=== PATIENT | female | born 1995 | race Caucasian/White ===

== ENCOUNTER → 2018-01-14 11:53 | Outpatient (CLI) | payer OTHER, SELFPAY ==
[2018-01-14 15:51] LABS: Hematocrit 38.7 % (37-47); Hemoglobin 12.2 g/dl (12.0-15.0); Mean Corp Hgb Conc 31.5 g/gl (32-36); Mean Corpuscular Hgb 25.7 pg (27.0-32.0); Mean Corpuscular Volume 81.5 fL (81-99); Mean Platelet Vol. 9.6 fl (6.2-12.0); Platelet Count 271 K/mm3 (150-450); RBC Distribution Width CV 12.4 % (11.6-14.6); RBC Distribution Width SD 36.9 fl (35.1-43.9); Red Blood Count 4.75 M/mm3 (4.2-5.4); Scan Indicated on CBC? Y/N NO; White Blood Count 5.9 K/mm3 (4.4-11.0)
== END ==
PROVIDERS: Visit Provider Obstetrics & Gynecology
DX: R53.83 Other fatigue (principal); N92.0 Excessive and frequent menstruation with regular cycle; R53.1 Weakness
CPT/HCPCS: 36415; 84443; 85027

== ENCOUNTER 2021-07-17 14:36 | Emergency (ER) | payer OTHER, SELFPAY ==
[2021-07-17] VITALS (13 sets, daily range): BP systolic 102–119; BP diastolic 57–76; PULSE 80–95; RESP 16–18; TEMP 36.3–37.1; O2SAT 99–100; BMI 26.4
--- NOTE | 2021-07-17 16:51 | EDS_ITS ---
HPI HPI - Female History of Present Illness Chief Complaint: Vag Bleeding Informant: patient Narrative Narrative: 26-year-old female presenting with vaginal bleeding. Patient states this started in mid May. She states she has been having heavy periods with clots. She has felt fatigued. She denies dizziness or syncope. Denies pelvic cramping. She was seen by [facility] [facility] today and had outpatient labs ordered. This showed anemia with a hemoglobin of 5.4. She was advised to come to the ED for blood transfusion. Prior similar symptoms: Yes Recent Illness/Hospitalization: No PFSH PFSH Medical History Non-smoker Home Medications NK 07/17/21 [History Last Taken Unknown] Allergy/AdvReac Type Severity Reaction Status Date / Time No Known Allergies Allergy Verified 07/17/21 14:40 Social History Smoking Status: Never smoker ROS ROS ED Constitutional Constitutional ED: Denies fever(s) Eyes Eyes: Denies change in vision ENT ENT ED: Denies rhinorrhea or sore throat Cardiovascular Cardiovascular: Denies chest pain or palpitations Respiratory/Chest Respiratory/Chest: Denies cough or dyspnea Gastrointestinal Gastrointestinal: Denies abdominal pain, diarrhea, nausea or vomiting Genitourinary Genitourinary ED: Reports other Details: vaginal bleeding ; Denies dysuria Musculoskeletal Musculoskeletal: Denies myalgias Integumentary Denies rash Neurologic Neurologic: Denies headache(s) Psychiatric Psychiatric: Denies suicidal thoughts EXAM Physical Exam Const Vital Signs: 07/17/21 14:38 07/17/21 19:11 07/17/21 19:26 Temperature 97.3 F L 98.1 F Temperature Source Temporal Oral Pulse Rate 89 91 93 Respiratory Rate 17 17 18 Blood Pressure 118/74 110/72 119/74 Blood Pressure Mean 88 84 89 Blood Pressure Source Blood Pressure Position Blood Pressure Location Pulse Ox 100 100 100 Oxygen Delivery Method Room Air Room Air Room Air 07/17/21 19:39 07/17/21 19:54 07/17/21 20:14 Temperature 98.1 F 98.2 F Temperature Source Oral Oral Pulse Rate 88 92 88 Respiratory Rate 18 18 16 Blood Pressure 118/65 115/73 108/65 Blood Pressure Mean 82 87 79 Blood Pressure Source Monitor Monitor Blood Pressure Position Sitting Semi-Fowlers Blood Pressure Location Right Arm Right Arm Pulse Ox 100 99 100 Oxygen Delivery Method Room Air Room Air Room Air 07/17/21 21:38 07/17/21 21:41 07/17/21 21:45 Temperature 98.7 F 98.7 F 98.2 F Temperature Source Oral Oral Oral Pulse Rate 87 81 81 Respiratory Rate 18 16 18 Blood Pressure 104/73 108/66 111/66 Blood Pressure Mean 83 80 81 Blood Pressure Source Monitor Monitor Monitor Blood Pressure Position Supine Supine Supine Blood Pressure Location Right Arm Right Arm Right Arm Pulse Ox 100 100 100 Oxygen Delivery Method Room Air Room Air Room Air 07/17/21 21:50 07/17/21 21:56 07/17/21 22:30 Temperature 98.1 F 98.2 F Temperature Source Oral Oral Pulse Rate 80 83 95 Respiratory Rate 17 16 16 Blood Pressure 106/69 107/68 106/76 Blood Pressure Mean 81 81 86 Blood Pressure Source Monitor Monitor Blood Pressure Position Supine Supine Blood Pressure Location Right Arm Right Arm Pulse Ox 99 100 100 Oxygen Delivery Method Room Air Room Air Room Air Positive well nourished and well developed General Appearance ED: well developed HEENT Reports normocephalic and head/scalp atraumatic Eyes PERRL and EOMs intact bilaterally Neck supple General: Negative for tenderness Chest Wall inspection of chest normal Resp normal respiratory effort and clear to auscultation bilaterally Cardio regular rate and regular rhythm GI non-tender and non-distended Palpation: soft; Negative for guarding or rebound tenderness present no CVA tenderness Extremity normal to inspection Neuro oriented x3 Sensorium / Orientation: alert Psych mental status grossly normal MDM MDM MDM Narrative Medical decision making narrative: Patient has never had a pelvic exam. Attempted pelvic exam without success. She has significant pain with minimal insertion of the speculum. She had no significant active bleeding. Hemoglobin 6.0. test is negative. She is typed and crossed for 2 units packed red blood cells. She was consented for blood transfusion. She was given 2 units packed red blood cells. She is resting comfortably on reevaluation. Discussed with Dr. Schulz and patient will follow-up as outpatient. She will take the medication she was prescribed earlier today by [employer] [facility]. Advised return to ED for worsening complaints. Lab Data Attestation: I reviewed the patient's lab results. Labs: Laboratory Results - last 24 hr 07/17/21 07/17/21 07/17/21 17:06 17:06 17:06 WBC 7.5 RBC 3.03 L Hgb 6.0 L* Hct 20.4 L MCV 67.3 L MCH 19.8 L MCHC 29.4 L RDW Std Deviation 41.4 RDW Coeff of Danette 16.9 H Plt Count 442 MPV 8.9 Immature Gran % (Auto) 0.700 Neut % (Auto) 55.8 Lymph % (Auto) 35.4 Barber % (Auto) 6.5 Eos % (Auto) 1.2 Baso % (Auto) 0.4 Absolute Neuts (auto) 4.2 Absolute Lymphs (auto) 2.67 Nucleated RBC % 0.3 Diff Path Review May foll Platelet Estimate SLT INC RBC Morphology N CHROM Hypochromasia 1+ Anisocytosis 1+ Microcytosis 1+ Tear Drop Cells RARE Ovalocytes RARE Serum , Qual Cancelled Urine Color Urine Clarity Urine pH Ur Specific [place] Urine Protein Urine Glucose (UA) Urine Ketones Urine Occult Blood Urine Nitrite Urine Bilirubin Urine Urobilinogen Ur Leukocyte Esterase Urine RBC Urine WBC Ur Squamous Epith Cells Urine Bacteria Urine Mucus Urine Test Blood Type O POSITIVE Antibody Screen NEGATIVE Crossmatch See Detail 07/17/21 07/17/21 17:06 19:52 WBC RBC Hgb Hct MCV MCH MCHC RDW Std Deviation RDW Coeff of Danette Plt Count MPV Immature Gran % (Auto) Neut % (Auto) Lymph % (Auto) Barber % (Auto) Eos % (Auto) Baso % (Auto) Absolute Neuts (auto) Absolute Lymphs (auto) Nucleated RBC % Diff Path Review Platelet Estimate RBC Morphology Hypochromasia Anisocytosis Microcytosis Tear Drop Cells Ovalocytes Serum , Qual Urine Color Matilde Urine Clarity Cloudy Urine pH 6.0 Ur Specific [place] 1.020 Urine Protein 100 H Urine Glucose (UA) Normal Urine Ketones 5 H Urine Occult Blood 250 H Urine Nitrite Negative Urine Bilirubin Negative Urine Urobilinogen Normal Ur Leukocyte Esterase 25 H Urine RBC > 100 SEEN Urine WBC 0 SEEN Ur Squamous Epith Cells 0-5 SEEN Urine Bacteria 0 SEEN Urine Mucus 0 SEEN Urine Test Negative Blood Type Antibody Screen Crossmatch Discharge Plan Triage Chief Complaint: Vag Bleeding ED Provider: Stephani Marmolejo Dx/Rx/DC Orders Clinical Impression: Anemia requiring transfusions, Vaginal bleeding Instructions: Anemia, ED Dysfunctional Uterine Bleeding Prescriptions: No Action NK RF: 0 Primary Care Provider: Jackie Mann Referrals: Jackie Mann MD [Primary Care Provider] - Mercy Schulz MD [STAFF PHYSICIAN] - Disposition Disposition: Home, Self Care
[2021-07-17 17:29] LABS: Absolute Lymphocyte Count 2.67 X10^3/uL (0.83-4.51); Absolute Neutrophil Count 4.2 X10^3/uL (2.0-7.7); Basophil# 0.03 X10^3/uL; Basophil% 0.4 % (0-1); Eosinophil# 0.09 X10^3/uL; Eosinophils% 1.2 % (0-5); Hematocrit 20.4 % (37-47); Lymphocyte # 2.67 X10^3/ul (0.83-4.51); Lymphocyte % 35.4 % (19-41); Mean Corp Hgb Conc 29.4 g/dL (32-36); Mean Corpuscular Hgb 19.8 pg (27.0-32.0); Mean Corpuscular Volume 67.3 fL (81-99); Mean Platelet Vol. 8.9 fl (6.2-12.0); Monocyte# 0.49 X10^3/uL; Monocyte% 6.5 % (0-10); NRBC Flagged by Analyzer 0.3 % (0-5); Neutrophil # 4.21 X10^3/uL (2.7-7.7); Neutrophil % 55.8 % (47-70); Platelet Count 442 K/mm3 (150-450); RBC Distribution Width CV 16.9 % (11.6-14.6); RBC Distribution Width SD 41.4 fl (35.1-43.9); Red Blood Count 3.03 M/mm3 (4.2-5.4); White Blood Count 7.5 K/mm3 (4.4-11.0)
[2021-07-17 17:37] LABS: Differential Indicated SCAN CRITERIA MET; POSITIVE COUNT NO; POSITIVE DIFFERENTIAL NO; POSITIVE MORPHOLOGY NO
[2021-07-17 17:41] LABS: Internal QC Validated? YES +Cl - CLEAR BKGD; Pregnancy, Urine Negative Negative
--- NOTE | 2021-07-17 17:42 | ED.RN ---
assisted physician with pelvic exam. pt unable to tolerate
[2021-07-17 18:07] LABS: Platelet Estimate SLT INC (ADEQ)
[2021-07-17 18:08] LABS: Anisocytosis 1+; Hypochromasia 1+; Microcytosis 1+; Ovalocyte RARE; Red Cell Morphology N CHROM NORMAL (NORM C&C); Tear Drop Cell RARE
[2021-07-17 19:59] LABS: Bacteria 0 SEEN /hpf (None Seen); Mucous, Urine 0 SEEN /hpf (<or=2+); White Blood Cells 0 SEEN /hpf (0-5)
[2021-07-17 20:03] LABS: Color, Urine Amber (Yellow); Glucose, Dipstick Normal (Normal); Ketone-Dipstick 5 mg/dl (Negative); Leukocyte Esterase-Dipstick 25 /ul (Negative); Nitrite-Dipstick Negative (Negative); Occult Blood-Urine 250 /ul (Negative); Protein-Dipstick 100 mg/dl (Negative); Urine Bilirubin Dipstick Negative (Negative); Urine Clarity Cloudy (Clear); Urine Urobilinogen Normal (Normal)
[2021-07-17 20:25] LABS: Red Blood Cells-Urine > 100 SEEN /hpf (0-5); Squamous Epithelial Cells - UA 0-5 SEEN /hpf (5-10)
[2021-07-18 15:20] LABS: Pathologist Review Reviewed
== END 2021-07-17 23:47 | disposition home or self-care (01) ==
PROVIDERS: Emergency Provider Emergency Medicine; PCP Internal Medicine; Visit Provider Emergency Medicine
DX: D64.9 Anemia, unspecified (principal); N93.9 Abnormal uterine and vaginal bleeding, unspecified; R53.83 Other fatigue
CPT/HCPCS: 36430; 81001; 81025; 85025; 86850; 86900; 86901; 86920; 86922; 99283; J7040; P9016; A4216

== ENCOUNTER 2021-08-27 01:43 | Emergency (ER) | payer OTHER, SELFPAY ==
[2021-08-27 01:47] VITALS: BP 123/73; PULSE 77; RESP 15; TEMP 36.6; O2SAT 98; BMI 28.7
--- NOTE | 2021-08-27 02:20 | ED.RN ---
ASSISTED PT TO RESTROOM TO OBTAIN URINE SAMPLE. PT PASSED LARGE CLOT- APPROX 5IN X 2 INCHES
[2021-08-27 02:24] LABS: Absolute Lymphocyte Count 3.11 X10^3/uL (0.83-4.51); Absolute Neutrophil Count 6.8 X10^3/uL (2.0-7.7); Basophil# 0.05 X10^3/uL; Basophil% 0.5 % (0-1); Eosinophil# 0.22 X10^3/uL; Hematocrit 32.6 % (37-47); Hemoglobin 9.9 g/dL (12.0-15.0); Lymphocyte # 3.11 X10^3/ul (0.83-4.51); Lymphocyte % 28.4 % (19-41); Mean Corp Hgb Conc 30.4 g/dL (32-36); Mean Corpuscular Hgb 20.9 pg (27.0-32.0); Mean Corpuscular Volume 68.9 fL (81-99); Mean Platelet Vol. 8.9 fl (6.2-12.0); Monocyte# 0.68 X10^3/uL; Monocyte% 6.2 % (0-10); NRBC Flagged by Analyzer 0 % (0-5); Neutrophil # 6.81 X10^3/uL (2.7-7.7); POSITIVE MORPHOLOGY YES; Platelet Count 384 K/mm3 (150-450); RBC Distribution Width CV 22.5 % (11.6-14.6); RBC Distribution Width SD 53.5 fl (35.1-43.9); Red Blood Count 4.73 M/mm3 (4.2-5.4)
[2021-08-27 02:31] LABS: Differential Indicated SCAN CRITERIA MET
[2021-08-27 02:32] LABS: Mucous, Urine 0 SEEN /hpf (<or=2+)
[2021-08-27 02:34] VITALS: BP 110/70; BP 119/77; BP 123/80; PULSE 83; PULSE 88; PULSE 98
[2021-08-27 02:36] LABS: Anion Gap 5 (5-15); BUN 16 mg/dL (7-18); BUN/Creat Ratio 18.2 RATIO (10-20); Calcium,Total 9.3 mg/dL (8.5-10.1); Chloride 108 mmol/L (98-107); Creatinine, Serum 0.88 mg/dL (0.55-1.02); EST Glomerular Filtration Rate 83 mL/min (>60); Est Glom Filt Rate - Afr Amer 100 mL/min (>60); Glucose 150 mg/dL (74-106); Potassium 3.9 mmol/L (3.5-5.1); Sodium Level 140 mmol/L (136-145)
[2021-08-27 02:49] LABS: Color, Urine Red (Yellow); Glucose, Dipstick Normal (Normal); Ketone-Dipstick 5 mg/dl (Negative); Leukocyte Esterase-Dipstick 100 /ul (Negative); Nitrite-Dipstick Negative (Negative); Occult Blood-Urine 250 /ul (Negative); Protein-Dipstick 100 mg/dl (Negative); Urine Bilirubin Dipstick Negative (Negative); Urine Clarity Cloudy (Clear); Urine Urobilinogen Normal (Normal)
[2021-08-27 02:50] LABS: Anisocytosis 2+; Microcytosis 2+
[2021-08-27 02:51] LABS: Internal QC Validated? YES +Cl - CLEAR BKGD; Pregnancy, Urine Negative Negative; Squamous Epithelial Cells - UA 0-5 SEEN /hpf (5-10); White Blood Cells 10-25 SEEN /hpf (0-5)
[2021-08-27] MEDS: Ondansetron 4 MG/2 ML Vial IV (02:53)
[2021-08-27] MEDS: Morphine 4 MG/ML Syringe IV (02:53)
[2021-08-27 02:54] VITALS: BP 111/80; PULSE 86; RESP 18; O2SAT 100
[2021-08-27 02:56] LABS: Red Blood Cells-Urine > 100 SEEN /hpf (0-5)
[2021-08-27 02:57] LABS: Bacteria 2+ /hpf (None Seen); Transitional Epithelial - Ur 0-5 SEEN /hpf (0-5)
--- NOTE | 2021-08-27 03:01 | EX.ED.DYSGE1 ---
HPI History of Present Illness Chief Complaint: Abd Pain Narrative Narrative: Patient is a 26-year-old female with past medical history of heavy menstrual bleeding leading to need for blood transfusion. She was on hormone replacement therapy to stop her menstrual cycle for the past 30 to 45 days. She recently stopped that medication and now reports having vaginal bleeding with passage of clot. She reports abdominal pain associated with this and states that it feels similar nature to her previous cycles and pain that she would have with them. She states she has tried [id number] Tylenol with no symptom improvement and with her return of bleeding had concerned that she may need another transfusion and secondary to this presents to the hospital for evaluation [facility] Medical History Non-smoker Home Medications cephalexin 500 mg PO TID 7 Days #21 cap 08/27/21 [Rx Last Taken Unknown] hydrocodone-acetaminophen 1 tab PO Q6H PRN 3 Days #12 tab 08/27/21 [Rx Last Taken Unknown] norelgestromin-ethin.estradiol [Xulane] 1 patch TOPICAL QWEEK 08/27/21 [History Last Taken Unknown] Allergy/AdvReac Type Severity Reaction Status Date / Time No Known Allergies Allergy Verified 08/27/21 01:51 Social History Smoking Status: Never smoker [facility] ED Constitutional Constitutional ED: Denies chills or fever(s) ENT ENT ED: Denies sore throat Cardiovascular Cardiovascular: Denies chest pain, palpitations or racing heartbeat Respiratory/Chest Respiratory/Chest: Denies cough or dyspnea Gastrointestinal Gastrointestinal: Reports abdominal pain; Denies diarrhea, nausea or vomiting Genitourinary Genitourinary ED: Reports hematuria; Denies dysuria Musculoskeletal Musculoskeletal: Denies myalgias Integumentary Denies rash Neurologic Neurologic: Denies headache(s) Hematologic/Lymphatic Hematologic/Lymphatic: Denies easy bleeding or easy bruising EXAM Physical Exam Const Vital Signs: 08/27/21 01:47 08/27/21 02:34 08/27/21 02:54 Temperature 97.8 F Temperature Source Oral Pulse Rate 77 86 Pulse Rate [Lying] 83 Pulse Rate [Sitting (for 1 minute prior to obtaining)] 88 Pulse Rate [Standing (for 1 minute prior to obtaining)] 98 Respiratory Rate 15 18 Blood Pressure 123/73 H 111/80 Blood Pressure [Lying] 110/70 Blood Pressure [Sitting (for 1 minute prior to obtaining)] 123/80 H Blood Pressure [Standing (for 1 minute prior to obtaining)] 119/77 Blood Pressure Mean 89 90 Blood Pressure Mean [Lying] 83 Blood Pressure Mean [Sitting (for 1 minute prior to obtaining)] 94 Blood Pressure Mean [Standing (for 1 minute prior to obtaining)] 91 Pulse Ox 98 100 Oxygen Delivery Method Room Air Room Air Positive well nourished and well developed General Appearance ED: well developed HEENT Reports moist mucous membranes Eyes PERRL and EOMs intact bilaterally General Eye ED: Negative for pale conjunctiva Neck supple Resp normal respiratory effort and clear to auscultation bilaterally Cardio regular rate and regular rhythm GI normal to inspection, nondistended, normoactive bowel sounds, non-tender, non-distended and no masses GI Narrative: No voluntary guarding or rigidity. Auscultation: normoactive bowel sounds Palpation: soft Back/Spine no CVA tenderness Extremity normal to inspection Neuro oriented x3 and CN's II-XII intact bilaterally Sensorium / Orientation: alert Motor Exam: strength 5/5 throughout Psych mental status grossly normal Skin no rashes or lesions noted MDM MDM MDM Narrative Medical decision making narrative: Patient presented to the ER with stable vitals and a soft nonsurgical abdomen. Therefore I felt no need for imaging studies at this time. With her history of needing a blood transfusion and now having return of her menstrual cycle I did elect to check basic laboratory value. Patient's hemoglobin is low at 9.9 but this is improved from the last value of 6 and above the threshold for blood transfusion. Orthostatic vitals were also obtained and were negative. Patient's urine did show a large amount of blood consistent with being on her menstrual cycle but it showed also +2 bacteria. Therefore some of her abdominal pain and spasm could be related to bladder infection. Therefore the urine will be sent for culture and patient will be started an antibiotic. However at this time as she does not have need for transfusion and she has no signs of acute kidney injury or urosepsis she can be discharged home and follow-up on an outpatient basis. Lab Data Attestation: I reviewed the patient's lab results. Labs: Laboratory Results - last 24 hr 08/27/21 08/27/21 08/27/21 02:10 02:10 02:22 WBC 11.0 RBC 4.73 Hgb 9.9 L Hct 32.6 L MCV 68.9 L MCH 20.9 L MCHC 30.4 L RDW Std Deviation 53.5 H RDW Coeff of Danette 22.5 H Plt Count 384 MPV 8.9 Immature Gran % (Auto) 0.900 Neut % (Auto) 62.0 Lymph % (Auto) 28.4 Garden % (Auto) 6.2 Eos % (Auto) 2.0 Baso % (Auto) 0.5 Absolute Neuts (auto) 6.8 Absolute Lymphs (auto) 3.11 Nucleated RBC % 0 Anisocytosis 2+ Microcytosis 2+ Sodium 140 Potassium 3.9 Chloride 108 H Carbon Dioxide 27.0 Anion Gap 5 BUN 16 Creatinine 0.88 Estim Creat Clear Calc 70.20 Est GFR (MDRD) Af Amer 100 Est GFR (MDRD) Non-Af 83 BUN/Creatinine Ratio 18.2 Glucose 150 H Calcium 9.3 Urine Color Red Urine Clarity Cloudy Urine pH 6.0 Ur Specific [place] 1.020 Urine Protein 100 H Urine Glucose (UA) Normal Urine Ketones 5 H Urine Occult Blood 250 H Urine Nitrite Negative Urine Bilirubin Negative Urine Urobilinogen Normal Ur Leukocyte Esterase 100 H Urine RBC > 100 SEEN Urine WBC 10-25 SEEN Ur Squamous Epith Cells 0-5 SEEN Ur Transition Epith Cell 0-5 SEEN Urine Bacteria 2+ Urine Mucus 0 SEEN Urine Test Negative Discharge Plan Triage Chief Complaint: Abd Pain ED Provider: Michael Del Toro Dx/Rx/DC Orders Clinical Impression: Uterine spasm, Urinary tract infection Instructions: Urinary Tract Infections in Women, ED Abdominal Pain Unkn Cause Fem Prescriptions: New cephalexin 500 mg capsule 500 mg PO TID 7 Days Qty: 21 RF: 0 hydrocodone-acetaminophen 5-325 mg tablet 1 tab PO Q6H PRN (Reason: pain) 3 Days Qty: 12 RF: 0 No Action Xulane 150-35 mcg/24 hr patch weekly 1 patch topical QWEEK RF: 0 Primary Care Provider: Jackie Mann Referrals: Jackie Mann MD [Primary Care Provider] - Disposition Disposition: Home, Self Care Discharge Date/Time: 08/27/21 03:08
[2021-08-27] MEDS: Cephalexin 250 MG Capsule 500 MG PO (03:04)
== END 2021-08-27 03:08 | disposition home or self-care (01) ==
PROVIDERS: Emergency Provider Emergency Medicine; PCP Internal Medicine; Visit Provider Emergency Medicine
DX: N39.0 Urinary tract infection, site not specified (principal); N85.8 Other specified noninflammatory disorders of uterus
CPT/HCPCS: 80048; 81001; 81025; 85025; 86850; 86900; 86901; 87086; 87088; 96374; 96375; 99284; A4216; J2405